=== PATIENT | male | born 2005 | race African-American/Black ===

== ENCOUNTER 2023-04-17 21:06 | Emergency (ER) | payer OTHER, SELFPAY ==
[2023-04-17 21:07] VITALS: BP 123/73; PULSE 95; RESP 18; TEMP 36.4; O2SAT 100; BMI 24.0
--- NOTE | 2023-04-17 21:38 | RAD_ITS ---
STUDY: X-RAY - LEFT RADIUS AND ULNA REASON FOR EXAM: Male, 17 years old. Fall TECHNIQUE: 2 view(s) of the forearm. COMPARISON: None. FINDINGS: There is no demonstrated soft tissue swelling. There is acute fracture of the mid to distal shaft of the radius with displacement 0.7 cm. Normal visualized ulna. RAD/Forearm 2 Views IMPRESSION: Fracture of the radius. Electronically Signed: Favian Beverly MD at 22:08 EDT ,
--- NOTE | 2023-04-17 22:54 | EX.ED.UPPERE ---
HPI History of Present Illness Chief Complaint: Upper Extremity Injury Detail of Chief Complaint: 1 to right forearm playing football for the college [employer] Informant: patient Occured/Mechanism Mechanism/Context: Yes injury and Yes blunt trauma Comment: Fell onto outstretched left upper extremity Onset/Context/Timing Onset: Today and Hours Context: Sudden Onset Quality of Pain: Dull and Aching Location: Mid left forearm Current Severity: Mild Maximum Severity: Severe Worsened by: Supination pronation and palpation Associated Symptoms Associated Symptoms: Negative for Parasthesia, Weakness or Loss of Funtion Narrative Narrative: 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 He is right-hand dominant. He denies paresthesia, anesthesia or motor weakness. He does report pain. He denies any other injuries or symptoms. Prior similar symptoms: No Recent Illness/Hospitalization: No PFSH PFSH Medical History no medical history no medical history Home Medications hydrocodone-acetaminophen 5-325mg 5mg-325mg 1 tab PO Q6H PRN PRN Pain 3 days #10 TABLETS 04/18/23 [Rx Last Taken Unknown] Allergy/AdvReac Type Severity Reaction Status Date / Time No Known Allergies Allergy Verified 04/17/23 21:08 Surgical History no surgical history no surgical history Social History (Updated 04/17/23 @ 22:[address] Teja Stanford MD) household members: other details: [employer] student Smoking Status: Never smoker substance use type: does not use ROS ROS ED Musculoskeletal Musculoskeletal: Denies back pain, myalgias or neck pain Integumentary Denies Abrasions or rash Neurologic Neurologic: Denies paresthesias or weakness Hematologic/Lymphatic Hematologic/Lymphatic: Denies easy bleeding or easy bruising EXAM Physical Exam Const Vital Signs: 04/17/23 21:07 Temperature 97.6 F L Temperature Source Temporal Pulse Rate 95 Respiratory Rate 18 Blood Pressure 123/73 H Blood Pressure Mean 89 Pulse Ox 100 Oxygen Delivery Method Room Air Positive well nourished and well developed General Appearance ED: well developed and NAD; Negative for cyanotic or diaphoretic HEENT Reports moist mucous membranes normocephalic and atraumatic Eyes PERRL and EOMs intact bilaterally Resp normal respiratory effort Cardio regular rate and regular rhythm Extremity Negative for normal to inspection Extremity Narrative: There is swelling of the left forearm. Median, radial and ulnar function intact. Radial pulses 2+ and symmetric. There is no pain ovation over the lateral medial epicondyle, olecranon process or radial head. There is no pain ovation of the distal radius or ulna. Patient does have pain mid left forearm. Capillary refill is normal. There is no swelling of the wrist, hand or fingers. Neuro oriented x3, CN's II-XII intact bilaterally, moves all extremities, no focal motor deficits and no sensory deficits noted Sensorium / Orientation: alert Psych mental status grossly normal Skin Lesions: no lesions Rashes: no rashes Trauma: no lacerations or abrasions MDM MDM MDM Narrative Medical decision making narrative: X-ray was obtained per nurse protocol. Patient is noted to have a fracture at the junction of the mid and distal third of the radius with approximately 50% displacement and 10% of volar apex angulation. This was Dr. Ortega. Asked if a posterior splint was appropriate. He said either a posterior splint or sugar-tong splint. He recommended I tell the patient there is a chance he will need surgical repair History & Record Review Discussion w/independent historian: Patient Radiography Chest X-Ray - ED: 2 View and Read by ED Physician (Fracture of the radius as described under the MDM.) Diagnostic Testing: Clinical Impression(s) from Imaging Studies Forearm X-Ray 04/17/23 21:38 IMPRESSION: Fracture of the radius. Electronically Signed: Favian Beverly MD at 22:08 EDT Reading Location ID and State: [address] [place] [address] , Service support , Procedures Upper Extremity Splints Upper Extremity Splint: Plaster and - (Posterior long-arm) Splint Fabrication: Fabricated Location: Left Discharge Plan Triage Chief Complaint: Upper Extremity Injury ED Provider: Teja Stanford Dx/Rx/DC Orders Clinical Impression: Displaced fracture of shaft of left radius Instructions: ED Fracture, Upper Extremity Prescriptions: New hydrocodone-acetaminophen [hydrocodone-acetaminophen] 5-325 mg tablet 1 tab PO Q6H PRN PRN (Reason: Pain) 3 Days Qty: 10 0RF Primary Care Provider: Care Physician,No Primary Referrals: Jan Ortega DO [Med Staff - Active Staff] - As soon as possible Care Physician,No Primary [Primary Care Provider] - Activity Restrictions/Additional Instructions: 1. Keep splint absolutely clean and dry 2. Elevate your wrist so it above your nose is much as possible 3. Apply ice to forearm 6-10 times a day 4. Take pain medicine as needed 5. Wear sling for comfort as you are up and about Disposition Disposition: Home, Self Care
== END 2023-04-18 00:23 | disposition home or self-care (01) ==
PROVIDERS: Emergency Provider Emergency Medicine; Visit Provider Emergency Medicine
DX: S52.302A Unspecified fracture of shaft of left radius, initial encounter for closed fracture (principal); Y93.61 Activity, american tackle football
CPT/HCPCS: 29405; 73090; 99283